=== PATIENT | male | born 1975 | race Caucasian/White ===

== ENCOUNTER 2019-08-05 22:28 | Emergency (ER) | payer OTHER ==
[2019-08-06] MEDS ORDERED: Acetaminophen 325 MG Tab PO ONE (00:12)
--- NOTE | 2019-08-06 00:16 | EDM.PDOC ---
ED HPI GENERAL MEDICAL PROBLEM - General Chief Complaint: General Stated Complaint: SLIP AND FALL Time Seen by Provider: 08/06/19 00:05 Source of Information: Reports: Patient History Limitations: Reports: No Limitations - History of Present Illness INITIAL COMMENTS - FREE TEXT/NARRATIVE: HISTORY OF PRESENT ILLNESS: Patient is a 43-year-old male who presents with fall. 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 Complains of headache, neck pain and right shoulder pain. Denies any weakness or paresthesias. No chest pain or dyspnea. No abdominal pain. Denies any other extremity pain. Pain is Currently 9 out of 10. He is driving himself home and cannot obtain a ride home from elsewhere REVIEW OF SYSTEMS: Other than the symptoms associated with the present events, the following is reported with regard to recent health: General: (-) fever. HENT: (-) congestion. Respiratory: (-) cough. Cardiovascular: (-) chest pain. GI: (-) abdominal pain. : (-) urinary complaints. Musculoskeletal: (+) right shoulder pain (-) back pain (+) neck pain Endocrine: (-) generalized weakness. Neurological: (-) localized weakness. Skin: (-) rash PAST MEDICAL HISTORY: reviewed as per nursing notes SOCIAL HISTORY: reviewed as per nursing notes, MEDICATIONS: Per nurse's note ALLERGIES: Per nurse's note, reviewed by me PHYSICAL EXAMINATION: GENERALIZED APPEARANCE: well developed, well nourished in mild distress VITAL SIGNS: Per nurse's note, reviewed by me SKIN: Warm, dry; (-) cyanosis; (-) rash. HEAD: (-) scalp swelling, (+)mild posterior tenderness. No STS EYES: (-) conjunctival pallor, (-) scleral icterus. PERRL. EOMI ENMT: (-) stridor; mucous membranes moist. NECK: (+)midline tenderness, no step off or deformity(-) stiffness, CHEST AND RESPIRATORY: (-) rales, (-) rhonchi, (-) wheezes; breath sounds equal bilaterally. HEART AND CARDIOVASCULAR: (-) irregularity; (-) murmur, (-) gallop. ABDOMEN AND GI: Soft; (-) tenderness, (-) guarding, (-) rebound, (-) palpable masses, EXTREMITIES: (-) deformity, (-) edema. (+) posterior right shoulder tenderness. FROM. 5/5+ Strength. 2+ Radial pulses .cap refill < 2 sec. sensation intact. NEURO AND PSYCH: Alert. Cranial nerves grossly intact; strength symmetric. gait steady DIAGNOSTICS: xray shoulder, CT head, CT cervical spine: read by radiologist, reviewed by myself. EMERGENCY DEPARTMENT COURSE AND TREATMENT: Patient's condition remained stable during Emergency Department evaluation. Given pain medications. MDM: Based on history, physical exam, and diagnostic evaluation, the patient appears to have symptoms consistent with a contusion. There was some suspicion for fracture, however imaging was negative. The patient appears otherwise well without obvious other injury. I recommended rest, ice, and pain medication when necessary. If the pain is not improving after 72 hours I recommended a follow- up appointment for repeat examination and possible further imaging. PLAN AND FOLLOW-UP: Patient received written and verbal instructions regarding this condition. Return to ED immediately with any new or worsening symptoms. Follow up to be arranged by Patient with pcp in 1-2 days for further evaluation. Given discharge precautions. Patient expressed verbal understanding. Right Neck Pain Score (Numeric/FACES): 8 - Related Data Allergies Allergy/AdvReac Type Severity Reaction Status Date / Time ceftriaxone Allergy Swelling Verified 08/05/19 22:55 Home Meds: Home Meds . [No Known Home Meds] 08/05/19 [History] Past Medical History Cardiovascular History: Reports: None Respiratory History: Reports: None Gastrointestinal History: Reports: None Genitourinary History: Reports: None Musculoskeletal History: Reports: Fracture Other Musculoskeletal History: L femur Neurological History: Reports: None Psychiatric History: Reports: None Endocrine/Metabolic History: Reports: None Hematologic History: Reports: None Immunologic History: Reports: None Oncologic (Cancer) History: Reports: None Dermatologic History: Reports: None - Infectious Disease History Infectious Disease History: Reports: Chicken Pox - Past Surgical History Head Surgeries/Procedures: Reports: None HEENT Surgical History: Reports: Oral Surgery Musculoskeletal Surgical History: Reports: Other (See Below) Other Musculoskeletal Surgeries/Procedures:: L knee sx Social & Family History - Tobacco Use Smoking Status *Q: Never Smoker - Recreational Drug Use Recreational Drug Use: No ED ROS GENERAL - Review of Systems Review Of Systems: See Below (see dictation) ED EXAM, GENERAL - Physical Exam Exam: See Below (see dictation) Course - Vital Signs Last Recorded V/S: Last Vital Signs Temp 98.6 F 08/06/19 01:37 Pulse 78 08/06/19 01:37 Resp 18 08/06/19 01:37 BP 113/68 08/06/19 01:37 Pulse Ox 98 08/06/19 01:37 - Orders/Labs/Meds Meds: Medications Discontinued Medications Generic Name Dose Route Start Last Admin Trade Name Janet PRN Reason Stop Dose Admin Acetaminophen 650 mg 08/06/19 00:12 08/06/19 00:34 Tylenol PO 08/06/19 00:13 650 mg NOW ONE Administration Ibuprofen 600 mg 08/06/19 01:19 08/06/19 01:36 Motrin PO 08/06/19 01:20 600 mg ONETIME ONE Administration Departure - Departure Time of Disposition: Disposition: Home, Self-Care 01 Condition: Good Clinical Impression: Shoulder contusion, Head contusion, Cervical strain - Discharge Information *PRESCRIPTION DRUG MONITORING PROGRAM REVIEWED*: Not Applicable *COPY OF PRESCRIPTION DRUG MONITORING REPORT IN PATIENT EROS: Not Applicable Instructions: Contusion, [id number], Cervical Sprain, Head Injury, Adult, [id number] Referrals: Jenni Jeff [Ordering Only Provider] - 2 Days Forms: ED Department Discharge Additional Instructions: The following information is given to patients seen in the emergency department who are being discharged to home. This information is to outline your options for follow-up care. We provide all patients seen in our emergency department with a follow-up referral. The need for follow-up, as well as the timing and circumstances, are variable depending upon the specifics of your emergency department visit. If you don't have a primary care physician on staff, we will provide you with a referral. We always advise you to contact your personal physician following an emergency department visit to inform them of the circumstance of the visit and for follow-up with them and/or the need for any referrals to a consulting specialist. The emergency department will also refer you to a specialist when appropriate. This referral assures that you have the opportunity for follow-up care with a specialist. All of these measure are taken in an effort to provide you with optimal care, which includes your follow-up. Under all circumstances we always encourage you to contact your private physician who remains a resource for coordinating your care. When calling for follow-up care, please make the office aware that this follow-up is from your recent emergency room visit. If for any reason you are refused follow-up, please contact the [facility] Emergency Department at and asked to speak to the emergency department charge nurse. . Sepsis Event Note - Evaluation Sepsis Screening Result: No Definite Risk - Focused Exam Vital Signs: Vital Signs Temp Pulse Resp BP Pulse Ox 08/06/19 01:37 98.6 F 78 18 113/68 98 08/05/19 22:52 97.2 F 71 18 142/95 H 97 Date Exam was Performed: 08/06/19 Time Exam was Performed: 01:50
--- NOTE | 2019-08-06 01:06 | CT ---
Indication: Fall Technique: Nonenhanced axial CT imaging through the head. Sagittal and coronal reconstructions are provided. Comparison: None Findings: There is no intracranial hemorrhage, edema, or mass effect. There is normal attenuation of the brain parenchyma. The ventricles are normal in size. The basal cisterns are patent. The calvarium is intact. The visualized paranasal sinuses and mastoid air cells are aerated. Mucous retention cyst is noted in the left maxillary sinus. Impression: No acute intracranial process. Please note that all CT scans at this facility use dose modulation, iterative reconstruction, and/or weight-based dosing when appropriate to reduce radiation dose to as low as reasonably achievable. Dictated by Demario Vaughn MD @ Aug 06 2019 1:05AM Signed by Dr. Demario Vaughn @ Aug 06 2019 1:05AM
--- NOTE | 2019-08-06 01:08 | CR ---
INDICATION: Pain after fall on ice. COMPARISON: None available. TECHNIQUE: The right shoulder was examined with AP internal and external rotation and outlet views for a total of three views. FINDINGS: The osseous structures are in anatomic alignment without fracture or dislocation. There is anatomic alignment of the humeral head and glenoid. The visualized chest is clear. IMPRESSION: Normal right shoulder. Dictated by Emmett Queen MD @ Aug 06 2019 1:05AM Signed by Dr. Emmett Queen @ Aug 06 2019 1:06AM
--- NOTE | 2019-08-06 01:13 | CT ---
Indication: Fall Technique: Nonenhanced axial CT imaging through the cervical spine. Sagittal and coronal reconstructions are provided. Comparison: None Findings: There is normal height and alignment of the cervical vertebral bodies. No fracture is demonstrated. The atlantoaxial and atlantooccipital relationships are normal. There is no prevertebral edema. Cervical lordosis is diminished. Multilevel degenerative disc disease is present, most pronounced at C5-6 and C6-7. Mild spinal stenosis is suggested at C6-7. There is no significant neural foraminal stenosis. Impression: 1. No acute fracture or traumatic malalignment. 2. Mild degenerative changes, as above. Please note that all CT scans at this facility use dose modulation, iterative reconstruction, and/or weight-based dosing when appropriate to reduce radiation dose to as low as reasonably achievable. Dictated by Demario Vaughn MD @ Aug 06 2019 1:06AM Signed by Dr. Demario Vaughn @ Aug 06 2019 1:11AM
[2019-08-06] MEDS ORDERED: Ibuprofen 600 MG Tab PO ONE (01:19)
== END 2019-08-06 01:38 | disposition home or self-care (01) ==
LOC: MW.ED 22:28
DX: S16.1XXA Strain of muscle, fascia and tendon at neck level, initial encounter (principal); S40.011A Contusion of right shoulder, initial encounter; S00.03XA Contusion of scalp, initial encounter; W00.0XXA Fall on same level due to ice and snow, initial encounter; Z98.890 Other specified postprocedural states
CPT/HCPCS: 70450; 72125; 73030; 99284; A9270; 99283